=== PATIENT | female | born 1995 | race Caucasian/White ===

== ENCOUNTER 2018-11-17 14:35 | Emergency (ER) | payer MEDICAID ==
[~2018-11-17] VITALS: Ht 165.1 cm; Wt 57.2 kg
[2018-11-17 14:57] VITALS: Ht 165.1 cm; Wt 57.2 kg
[2018-11-17 16:43] VITALS: BP 125/77
== END 2018-11-17 16:42 | disposition home or self-care (01) ==
LOC: ED 14:35
DX: S90.425A Blister (nonthermal), left lesser toe(s), initial encounter (principal); X58.XXXA Exposure to other specified factors, initial encounter; Y93.89 Activity, other specified; Y92.89 Other specified places as the place of occurrence of the external cause; Y99.8 Other external cause status